=== PATIENT | male | born 1945 | race Caucasian/White ===

== ENCOUNTER 2017-04-30 20:29 | Emergency (ER) | payer MEDICARE, OTHER ==
[2017-04-30 20:37] VITALS: TEMP 97.1
[2017-04-30] MEDS ORDERED: ONDANSETRON ODT 4 MG TAB PO STA (21:43)
[2017-04-30] MEDS ORDERED: HYDROmorphone 2 MG/ML 1 ML SYRINGE IM STA (21:43)
[2017-04-30] MEDS: IBUPROFEN 800 MG TAB PO STA ×2 (21:52→22:08)
[2017-04-30] MEDS ORDERED: DIAZEPAM 5 MG/ML 2 ML SYRINGE IVP STA (21:53)
[2017-04-30] MEDS ORDERED: ONDANSETRON 4 MG/2 ML VIAL IVP STA (21:53)
[2017-04-30] MEDS ORDERED: HYDROmorphone 1 MG/ML 1 ML SYRINGE IVP STA (21:53)
[2017-04-30] MEDS ORDERED: KETOROLAC 30 MG/ML 1 ML VIAL IVP STA (21:53)
--- NOTE | 2017-04-30 22:05 | ED ---
General Adult HPI - General Chief complaint: Back Pain/Injury Stated complaint: back pain Time Seen by Provider: 04/30/17 21:15 Source: patient, family, RN notes reviewed, old records reviewed Mode of arrival: EMS Limitations: no limitations - History of Present Illness Initial comments: Is a 72-year-old male the ER for evaluation. Patient is here for evaluation of back pain. Worsening back pain for 2 days, patient was doing work in the yard and this did more stressful lifting and is normal than he normally does and that is used to. No pain down his leg no loss of bowel or bladder no neurological complaints. Patient states he takes Motrin at home for pain with no help. Patient does follow with pain management. - Related Data Home Medications Medication Instructions Recorded Confirmed Olmesartan [Benicar] 1 tab PO DAILY 07/11/16 07/11/16 metFORMIN HCL [metFORMIN HCL ER] 1 tab PO DAILY 07/11/16 07/11/16 Allergies Allergy/AdvReac Type Severity Reaction Status Date / Time Iodinated Contrast Media - Allergy Anaphylaxis Verified 04/30/17 20:37 Oral and [Iodinated Contrast Media - IV Dye] Review of Systems ROS Statement: Those systems with pertinent positive or pertinent negative responses have been documented in the HPI. ROS Other: All systems not noted in ROS Statement are negative. Past Medical History Past Medical History: Diabetes Mellitus, Hypertension History of Any Multi-Drug Resistant Organisms: None Reported Past Surgical History: Adenoidectomy, Orthopedic Surgery, Tonsillectomy Past Psychological History: No Psychological Hx Reported Smoking Status: Current every day smoker Past Alcohol Use History: None Reported Past Drug Use History: None Reported General Exam Limitations: no limitations General appearance: alert, in no apparent distress Head exam: Present: atraumatic, normocephalic, normal inspection Eye exam: Present: normal appearance, PERRL, EOMI. Absent: scleral icterus, conjunctival injection, periorbital swelling ENT exam: Present: normal exam, mucous membranes moist Neck exam: Present: normal inspection. Absent: tenderness, meningismus, lymphadenopathy Respiratory exam: Present: normal lung sounds bilaterally. Absent: respiratory distress, wheezes, rales, rhonchi, stridor Cardiovascular Exam: Present: regular rate, normal rhythm, normal heart sounds. Absent: systolic murmur, diastolic murmur, rubs, gallop, clicks GI/Abdominal exam: Present: soft, normal bowel sounds. Absent: distended, tenderness, guarding, rebound, rigid Extremities exam: Present: normal inspection, full ROM, normal capillary refill. Absent: tenderness, pedal edema, joint swelling, calf tenderness Back exam: Present: normal inspection Neurological exam: Present: alert, oriented X3, CN II-XII intact Psychiatric exam: Present: normal affect, normal mood Skin exam: Present: warm, dry, intact, normal color. Absent: rash Course Vital Signs 04/30/17 20:32 Temperature 97.1 F L Pulse Rate 91 Respiratory 144 H Rate O2 Sat by Pulse 94 L Oximetry - Reevaluation(s) Reevaluation #1: 04/30/17 22:04 At this point we patient does have adequate pain control Medical Decision Making - Medical Decision Making 72 male to ER for evaluation. Patient presents today for evaluation of back pain. No neurological issues. Patient has good pain control at this time. Can be discharged home Disposition Clinical Impression: Mechanical back pain, Strain of lumbar region Disposition: HOME SELF-CARE Condition: Good Instructions: Acute Low Back Pain (ED), Chronic Back Pain (ED) Referrals: Nilsa Crum MD [Primary Care Provider] - 1-2 days
[2017-04-30 22:42] VITALS: BP 131/62; PULSE 70; RESP 16
== END 2017-04-30 23:15 | disposition home or self-care (01) ==
LOC: EC 20:29
DX: S39.012A Strain of muscle, fascia and tendon of lower back, initial encounter (principal); E11.9 Type 2 diabetes mellitus without complications; I10 Essential (primary) hypertension; F17.200 Nicotine dependence, unspecified, uncomplicated; Z91.041 Radiographic dye allergy status; Z79.84 Long term (current) use of oral hypoglycemic drugs; Z79.899 Other long term (current) drug therapy; X50.0XXA Overexertion from strenuous movement or load, initial encounter; Y93.89 Activity, other specified; Y92.096 Garden or yard of other non-institutional residence as the place of occurrence of the external cause
CPT/HCPCS: 99284; 96374; 96375 ×2; J3360; J1885; J1170

== ENCOUNTER → 2017-08-15 | Outpatient (CLI) | payer MEDICARE, OTHER ==
--- NOTE | 2017-08-15 09:43 | CTL ---
EXAMINATION TYPE: CT Low Dose Lung DATE OF EXAM ORDERED: 08/15/2017 HISTORY: Tobacco abuse. Lung cancer screening CT DLP: [address] CTDI: 2.68 mGy Automated exposure control for dose reduction was used. SCREENING VISIT: COMPARISON: None TECHNIQUE: Low dose computed tomography scan was performed through the chest at 1 mm thick sections a nd reconstructed images in the coronal plane at [address] DIAGNOSTIC QUALITY: Satisfactory FINDINGS: LUNG NODULES: None. Right a nodule with a size of 5 mm is seen within the right lower lobe abutting the interlobar fissur e that could represent perifissural lymph node versus solid pulmonary nodule. Nodule Type: Solid on i mage # CT Image slide number 202. Right a nodule with a size of 4 mm is seen within the right upper lobe. Nodule Type: Solid on image # CT Image slide number 23 of series 3. Right a nodule with a size of 4 mm is seen within the right upper lobe. Nodule Type: Solid on image # CT Image slide number 12 of series 3. Left a nodule with a size of 4 mm is seen within the left upper lobe. Nodule Type: Solid on image # C T Image slide number 20 of series 3. LUNGS: COPD: Severity: None Fibrosis: Severity: None Lymph nodes: No adenopathy. Other findings: Wedge-shaped area of subsegmental atelectasis is seen within the right middle lobe on series 5 image 159. Linear area of pleural parenchymal scarring or subsegmental atelectasis is seen within the left lower lobe on series 3 image 42. RIGHT PLEURAL SPACE: Effusion: None Calcification: None Thickening: None Pneumothorax: None LEFT PLEURAL SPACE: Effusion: None Calcification: None Thickening: None Pneumothorax: None HEART: Heart Size: Nonenlarged, however there is dilation of the ascending thoracic aorta measuring 4.4 cm o n series 6 image 91. Coronary calcification: Minimal within the left main coronary artery. Pericardial effusion: None. OTHER FINDINGS: Upper abdomen: Artifact within the caudate lobe and left hepatic lobe. Bony thorax: Intact with minimal degenerative changes of the thoracic spine. Nonunited old fracture d eformity of the sternal body. Supraclavicular region: No adenopathy IMPRESSION: Bilateral solid nodules less than 6 mm that per the LUNG-RADS criteria have a very low li kelihood of becoming a clinically active cancer due to size. However surveillance is recommended. FOLLOW UP CT CHEST RECOMMENDATION: Continued annual screening low dose CT is recommended in [address] LUNG RAD: 2
== END | disposition home or self-care (01) ==
LOC: RADCTMAIN 08:36
PROVIDERS: ATTEND Internal Medicine
DX: Z12.2 Encounter for screening for malignant neoplasm of respiratory organs (principal); R91.8 Other nonspecific abnormal finding of lung field; F17.200 Nicotine dependence, unspecified, uncomplicated

== ENCOUNTER → 2017-08-17 | Outpatient (CLI) | payer MEDICARE, OTHER ==
--- NOTE | 2017-08-17 11:30 | US ---
EXAMINATION TYPE: US kidneys/renal and bladder DATE OF EXAM: 08/17/2017 COMPARISON: US 2016 CLINICAL HISTORY: N28.1 Kidney Cyst diabetic per patient EXAM MEASUREMENTS: Right Kidney: 11.5 x 7.5 x 5.2 cm Left Kidney: 10.9 x 5.8 x 5.4 cm Post Void Residual Volume: 40.8 mL Right Kidney: two simple cortical cysts noted: upper pole = 1.5 x 1.9 x 1.6cm and mid lower pole = 1. 6 x 1.9 x 1.7cm . The previously described mid to lower pole renal lesion that had demonstrated as in terval growth on the prior exam appears decreased in size, which may be attributable to technique. Ho wever there is no interval growth as on the prior exam this measured 2.5 cm and this lesion appears s imple on today's and examination with no internal septations or mural nodularity. Left Kidney: mid upper cortical cyst imaged =0.7 x 0.8 x 0.9cm Bladder: wnl Bilateral Jets seen: Yes Normal Post Void Residual: Yes Prominent prostate is noted posterior to bladder. IMPRESSION: 1. Benign-appearing right renal cysts with no interval growth. Subcentimeter left renal cyst. 2. Small postvoid residual within the urinary bladder 40.8 mL.
== END | disposition home or self-care (01) ==
LOC: RADUSWWP 08:58
PROVIDERS: ATTEND Urology
DX: N28.1 Cyst of kidney, acquired (principal); Z91.041 Radiographic dye allergy status
CPT/HCPCS: 76770

== ENCOUNTER 2018-02-06 09:12 | Day surgery (SDC) | payer MEDICARE, OTHER ==
[2018-02-03 08:44] VITALS: BMI 32.3
--- NOTE | 2018-02-06 06:27 | HP ---
HISTORY AND PHYSICAL CHIEF COMPLAINT: Fluid in the right ear. HISTORY OF PRESENT ILLNESS: This patient is a 72-year-old male who was recently seen in my office complaining of having a significant hearing loss in his right ear. The patient states that his symptoms have been present for the past several months. In addition, he feels that he also has a hearing loss from being exposed to noise in the past. At the time he was seen in my office, clinical examination of the ears revealed chronic right serous otitis media so-called glue ear. It was recommended that the patient undergo a right myringotomy with insertion of ventilation tubes under IV sedation. PAST MEDICAL HISTORY: Past medical history reveals that the patient has allergies to IODINE. MEDICATIONS: Current medications include metformin, Advil, and Flexeril. REVIEW OF SYSTEMS: Review of systems reveals cardiovascular system is negative. The metabolic endocrine system is positive for type 2 diabetes mellitus. Musculoskeletal system is positive for osteoarthritis. The remainder of review of systems is unremarkable. PHYSICAL EXAMINATION: The patient is a pleasant 72-year-old male who is alert and cooperative. HEENT EXAMINATION: Patient is normocephalic. Tympanic membranes are normal. Middle ear space on the left is free of any fluid or infection. Middle ear space on the right is dull with evidence of fluid in the right middle ear space. Pupils equal, round, and react to light and accommodation. Extraocular movements are within normal limits. Intranasal examination reveals severe septal deviation with compensatory hypertrophy of the inferior turbinates. Examination of oropharynx and the remainder of the head, neck exam including cranial nerves 2 through 12 are all within normal limits. CHEST/CARDIOVASCULAR: Both lung hudson are clear to percussion and auscultation. The patient is in regular sinus rhythm. S1 and S2 are present without any murmurs, S3s or S4s. Peripheral pulses are bilaterally symmetrical. ABDOMEN: There is no evidence the masses, megaly or tenderness. The abdomen is soft. Skin is unremarkable. Musculoskeletal and neurological are within normal limits. RECTAL EXAM: The rectal exam is deferred at this time because the patient has this done on a regular basis at his family physician's office. PREVIOUS SURGERIES: Previous surgeries include a vasectomy, tonsillectomy, adenoidectomy, and a hematoma which was removed from the patient's left knee. The remainder of physical exam is essentially unremarkable. IMPRESSION: Chronic right serous otitis media. PLAN: The patient is scheduled to undergo a right myringotomy with insertion of ventilation tubes under IV sedation with MAC in the a.m. ATTENTION RNS IN THE PRE-SURGICAL AREA: I have not ordered any medications or pre- surgical prophylactic antibiotics for this patient. If the pharmacy department sends any pre-surgical prophylactic antibiotics to the pre-surgical area for this patient, please cancel that order and return the medication to the pharmacy department. Also please make sure that the patient's account is credited appropriately. I have discussed the risks, benefits and alternative therapies for the above-mentioned procedure and for both sedation/analgesia as well as necessary blood product administration, if indicated, as they pertain to this patient. The patient has indicated his or her understanding and acceptance of the risks and procedures discussed. ROMULOL / IJN: [id number] /
[~2018-02-06 09:12] MED LIST: LACTATED RINGERS 1,000 ML IV SCH; MIDAZOLAM 2 MG/2 ML VIAL IV PRN; ONDANSETRON 4 MG/2 ML VIAL IVP ONE; Pre Op ABX Message 1 EACH MISC MISCELLANE ONE; fentaNYL (PF) 50 MCG/ML 2 ML AMP IV PRN
[2018-02-06 09:45] LABS: Glucose,Whole Blood 143 mg/dL (75-99)
[2018-02-06] MEDS ORDERED: OFLOXACIN 0.3% OTIC DROPS 5 ML BTL RIGHT EAR ONE ×2 (11:37→11:53)
[2018-02-06] MEDS ORDERED: PROPOFOL 10 MG/ML 20 ML VIAL IV ONE (11:39)
[2018-02-06] MEDS ORDERED: LIDOCAINE 1% INJ 10MG/ML (20 ML MDV) ONE (11:39)
[2018-02-06] MEDS ORDERED: fentaNYL (PF) 50 MCG/ML 2 ML AMP ONE (11:39)
[2018-02-06] MEDS ORDERED: LACTATED RINGERS 1,000 ML IV ONE (12:01)
[2018-02-06 12:22] VITALS: TEMP 97.5
[2018-02-06 12:26] LABS: Glucose,Whole Blood 115 mg/dL (75-99)
[2018-02-06 13:28] VITALS: PULSE 69
[2018-02-06 13:42] VITALS: BP 142/69; RESP 16
--- NOTE | 2018-02-06 20:48 | OP ---
OPERATIVE REPORT DATE OF SURGERY: 02/06/2018. PREOP DIAGNOSIS: Chronic right serous otitis media. POSTOPERATIVE DIAGNOSIS: Chronic right serous otitis media. ANESTHESIA: General anesthesia via LMA. OPERATIVE PROCEDURE: Right myringotomy with insertion of a Activent Joanna bobbin type ventilation tube. SURGEON: Dr. Smith. COMPLICATIONS: None. ESTIMATED BLOOD LOSS: Zero. PROCEDURE: The patient is placed on the operating table in supine position. After uneventful induction and LMA insertion, satisfactory sedation was obtained. Next the patient's right ear was draped in the usual and customary fashion. Following this, using the Zeiss operating microscope and a #3 aural speculum, the right external auditory canal was cleansed of all wax and debris. Next, inspection of the right tympanic membrane revealed that there were several calcified plaques (tympanosclerosis) noted in several portions of the tympanic membrane. Therefore, a portion of the tympanic membrane in the anterior inferior quadrant where there were no such plaques was elected to make the incision. The incision was made in the anterior inferior quadrant using a myringotomy knife. The fluid was suctioned from the right middle ear space, which appeared to be clear. Next, an Activent Joanna bobbin ventilation tube was inserted through the previously made myringotomy incision without any difficulty. At this point, the procedure was terminated. There were no intraoperative complications. Patient tolerated procedure well and was returned to the recovery room in satisfactory condition. MMODL / IJN: [id number] /
== END 2018-02-06 13:55 | disposition home or self-care (01) ==
LOC: OR 09:12
PROVIDERS: ATTEND Otolaryngology
DX: H65.21 Chronic serous otitis media, right ear (principal); H74.01 Tympanosclerosis, right ear; I10 Essential (primary) hypertension; E11.9 Type 2 diabetes mellitus without complications; F17.200 Nicotine dependence, unspecified, uncomplicated; Z79.1 Long term (current) use of non-steroidal anti-inflammatories (NSAID); Z79.84 Long term (current) use of oral hypoglycemic drugs; Z79.899 Other long term (current) drug therapy; Z91.041 Radiographic dye allergy status; Z98.52 Vasectomy status
CPT/HCPCS: 69436; J2405; J2001; J3010; J2704

== ENCOUNTER → 2018-08-15 | Outpatient (CLI) | payer MEDICARE, OTHER ==
--- NOTE | 2018-08-15 15:48 | US ---
EXAMINATION TYPE: US kidneys/renal and bladder DATE OF EXAM: 08/15/2018 COMPARISON: US, CT CLINICAL HISTORY: N28.1 Renal Cyst. Diabetic EXAM MEASUREMENTS: Right Kidney: 11.4 x 6.4 x 5.3 cm Left Kidney: 11.4 x 4.2 x 5.8 cm Post Void Residual Volume: 38.5 mL Right Kidney: multiple cysts noted with largest and simple appearing at mid lower cortex = 1.9 x 1.9 x 2.0cm Left Kidney: simple cortical cyst seen upper = 0.9 x 0.8 x 0.7cm; hyperechoic vessel alonso noted infe riorly Bladder: wnl; prominent prostate noted inferiorly Bilateral Jets seen: yes Normal Post Void Residual: yes There is no evidence for hydronephrosis at this point in time. No nephrolithiasis is seen. The urin francisca bladder is anechoic. Bilateral ureteral jets are seen. IMPRESSION: Bilateral cortical renal cysts as seen on the prior exam of 08/17/2017.
== END | disposition home or self-care (01) ==
LOC: RADUSWWP 14:46
PROVIDERS: ATTEND Urology
DX: N28.1 Cyst of kidney, acquired (principal)
CPT/HCPCS: 76770

== ENCOUNTER → 2023-05-18 | Outpatient (CLI) | payer MEDICARE, OTHER ==
--- NOTE | 2023-05-18 13:12 | CTL ---
EXAMINATION TYPE: CT Low Dose Lung DATE OF EXAM ORDERED: 05/18/2023 HISTORY: 78-year-old male Z12.2, personal history of tobacco use, current smoker with 80 pack-year hi story. Lung cancer screening CT DLP: [address] CTDI: 2.56 mGy Automated exposure control for dose reduction was used. SCREENING VISIT: Follow-up after last exam 6 years ago. COMPARISON: 08/15/2017 TECHNIQUE: Low dose computed tomography scan was performed through the chest with coronal and sagitta l reconstructions. CT DIAGNOSTIC QUALITY: Satisfactory FINDINGS: Heart is normal size without pericardial effusion. LCA and LAD coronary artery calcifications are pre sent. 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 Mild atherosclerotic arch calcifications with conventional arch vessel branching anatomy. No thoracic lymphadenopathy by CT size criteria. There is mild diffuse bronchial wall thickening. No consolidation or pleural effusion. 6 mm peripheral right basilar pulmonary nodule, axial image 216 unchanged. Minor fissure nodularity measuring up to 7 mm, axial image 158, unchanged. 4 mm anterior right upper lobe pulmonary nodule, axial image 121, unchanged. 3 mm right upper lobe pulmonary nodule, axial image 87 unchanged. 4 mm left upper lobe pulmonary nodule, axial image 54 unchanged. 3 mm anteromedial left upper lobe pulmonary nodule, axial image 127 not seen previously. 3 mm lingular pulmonary nodule left midlung, axial image 142, unchanged. 3 mm posterior left lower lobe pulmonary nodule, axial images 207, unchanged. 5 mm subpleural pulmonary nodule lateral left lower lobe, axial image 221 unchanged. There may be underlying mild fatty infiltration of the liver. Bones: No osseous destructive process. Normal variant sternal foramen. IMPRESSION: 1. Lung RADS Category 2 (benign appearance or behavior, <1% chance of malignancy). A number of 7 mm a nd smaller pulmonary nodules are unchanged compatible with a benign etiology. A new 3 mm left-sided p ulmonary nodule on annual follow-up would also be classified as benign. 2. Mild bronchial wall thickening suggests bronchitis or chronic asthma. Recommend smoking cessation. 3. 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 Follow-up as clinically indicated. CT LUNG RAD AND CT CHEST RECOMMENDATION: Lung-Rad 2 Benign Appearance or Behavior: Continue annual sc reening with LDCT in 12 months. S Modifier (other clinically significant findings): None
== END | disposition home or self-care (01) ==
LOC: RADCTMAIN 11:50
PROVIDERS: ATTEND Internal Medicine
DX: Z12.2 Encounter for screening for malignant neoplasm of respiratory organs (principal); F17.210 Nicotine dependence, cigarettes, uncomplicated; J98.09 Other diseases of bronchus, not elsewhere classified; I71.21 Aneurysm of the ascending aorta, without rupture; R91.8 Other nonspecific abnormal finding of lung field
CPT/HCPCS: 71271

== ENCOUNTER → 2023-05-31 | Outpatient (CLI) | payer MEDICARE, OTHER ==
--- NOTE | 2023-05-31 15:00 | US ---
EXAMINATION TYPE: US carotid duplex BILAT DATE OF EXAM: 05/31/2023 COMPARISON: NONE CLINICAL INDICATION: Male, 78 years old with history of I65.23 CAROTID STENOSIS,BILATERAL; Stenosis TECHNIQUE: Carotid duplex ultrasound examination. Indirect Doppler criteria was utilized. FINDINGS: EXAM MEASUREMENTS: RIGHT: Peak Systolic Velocity (PSV) cm/sec ----- Right CCA: 66.0 ----- Right ICA: 504 ----- Right ECA: 126 ICA/CCA ratio: 7.6 RIGHT: End Diastole cm/sec ----- Right CCA: 12.1 ----- Right ICA: 150 ----- Right ECA: 0.0 LEFT: Peak Systolic Velocity (PSV) cm/sec ----- Left CCA: 58.6 ----- Left ICA: 164 ----- Left ECA: 133 ICA/CCA ratio: 2.8 LEFT: End Diastole cm/sec ----- Left CCA: 8.2 ----- Left ICA: 38.8 ----- Left ECA: 5.1 VERTEBRALS (direction of flow): Right Vertebral: Antegrade Left Vertebral: Antegrade Rhythm: Normal PRODUCT DEVELOPMENT COORDINATOR NOTES: Heterogeneous plaque bilaterally with severely elevated velocities on right side Voicemail of results left at physician's office at time of exam IMPRESSION: 1. Measurements indicate hemodynamically significant severe, greater than 70% proximal right ICA sten osis. 2. Possible moderate (50-69%) proximal left ICA stenosis. Criteria for Assigning % of Stenosis / Diameter reduction (Estimation based on the indirect measurements of the internal carotid artery velocities (ICA PSV). 1. Normal (no stenosis)=ICA PSV < 125 cm/s: ratio < 2.0: ICA EDV<40 cm/s. 2. Less than 50% stenosis=ICA PSV < 125 cm/s: ratio < 2.0: ICA EDV<40 cm/s. 3. 50 to 69% stenosis=ICA PSV of 125 to 230 cm/s: ration 2.0 ? 4.0: ICA EDV 40-100 cm/s. 4. Greater than 70% stenosis to near occlusion= ICA PSV > 230 cm/s: ratio > 4.0: ICA EDV > 100 cm/s. 5. Near occlusion= ICA PSV velocities may be low or undetectable: variable ratio and ICA EDV. 6. Total occlusion=unable to detect flow.
== END | disposition home or self-care (01) ==
LOC: RADUSWWP 10:47
PROVIDERS: ATTEND Internal Medicine
DX: I65.23 Occlusion and stenosis of bilateral carotid arteries (principal)
CPT/HCPCS: 93880

== ENCOUNTER → 2023-09-02 | Outpatient (CLI) | payer MEDICARE, OTHER ==
--- NOTE | 2023-09-12 09:46 | MR ---
EXAMINATION TYPE: MR angio neck wo/w con DATE OF EXAM: 09/02/2023 COMPARISON: Ultrasound 8 1 HISTORY: Abnormal US, stenosis CONTRAST: Standard multiplanar, multisequence MRI departmental protocol images were obtained without contrast a nd with 8.5 mL intravenous Gadavist gadolinium contrast. FINDINGS: Exam is significantly limited due to motion artifact. Vertebral arteries are symmetric in size. Carotid bifurcations are patent. There are findings are lindsay picious for a high-grade proximal right ICA stenosis measuring greater than 70%. IMPRESSION: Limited exam due to severe motion artifact. Findings are suspicious for high grade proximal right int ernal carotid artery stenosis. Given limitations of exam recommended follow-up arteriogram or CTA for confirmation.
== END | disposition home or self-care (01) ==
LOC: RADMRIMAIN 09:35
PROVIDERS: ATTEND Internal Medicine
DX: I65.29 Occlusion and stenosis of unspecified carotid artery (principal); R93.89 Abnormal findings on diagnostic imaging of other specified body structures
CPT/HCPCS: 70549; A9585

== ENCOUNTER → 2024-05-23 | Outpatient (CLI) | payer MEDICARE, OTHER ==
--- NOTE | 2024-05-23 18:10 | CTL ---
EXAMINATION TYPE: CT Low Dose Lung DATE OF EXAM: 05/23/2024 3:24 PM CLINICAL INDICATION:Male, 79 years old with history of Z12.2,F17.210 NICOTINE DEPENDENCE; personal to bacco use , history of tobacco use. COMPARISON: None. TECHNIQUE: Multiple axial non-contrast scans were obtained from approximately the lung apices through the upper abdomen. Coronal and sagittal reformatted images were obtained. Low dose technique was uti lized. CT DLP: 88 mGycm, Automated exposure control for dose reduction was used. CT Contrast: Contrast used: None Oral contrast used: None FINDINGS: ======== Lack of intravenous contrast and low dose technique limits the evaluation of the vascular and soft ti ssue structures. Heart is normal size without pericardial effusion. LCA and LAD coronary artery calcifications are present.? ? 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 Mild atherosclerotic arch calcifications with conventional arch vessel branching anatomy.? ? No thoracic lymphadenopathy by CT size criteria.? ? There is mild diffuse bronchial wall thickening. No consolidation or pleural effusion.? ? 6 mm peripheral right basilar pulmonary nodule, series 4, image 202 is stable Minor fissure nodularity measuring up to 7 mm, series 4, image 154, unchanged 4 mm anterior right upper lobe pulmonary nodule, series 4, image 117, stable 3 mm right upper lobe pulmonary nodule, series 4, image 86, unchanged. 4 mm left upper lobe pulmonary nodule, series 4, image 86 is stable 3 mm anteromedial left upper lobe pulmonary nodule, series 4, image 129 is less conspicuous or perhap s smaller. 3 mm lingular pulmonary nodule left midlung, series 4, image 142 stable. 3 mm posterior left lower lobe pulmonary nodule, series 4, image 203, stable. 5 mm subpleural pulmonary nodule lateral left lower lobe, series 4, image 211 is stable. Bones: No osseous destructive process. Normal variant sternal foramen.? ? IMPRESSION:? ? 1. Lung RADS Category 2 (benign appearance or behavior, <1% chance of malignancy). A number of 7 mm a nd smaller pulmonary nodules are unchanged compatible with a benign etiology. A 3 mm left-sided pulm onary nodule on this follow-up exam can now be classified as benign.? ? 2. Recommend smoking cessation.? ? 3. 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 Follow-up as clinically indicated.? CT LUNG RAD AND CT CHEST RECOMMENDATION: Lung-Rad 2 Benign Appearance or Behavior: Continue annual sc reening with LDCT in 12 months. S Modifier (other clinically significant findings): S (emphysema and coronary artery disease) Recommend smoking cessation (if current smoker), or continuation of smoking cessation (if prior smoke r). Annual screening for lung cancer with low-dose computed tomography is recommended in adults ages 55 to 77 years who have a 30 pack-year smoking history and currently smoke or have quit within the pa st 15 years. Screening should be discontinued once a person has not smoked for 15 years or develops a health problem that substantially limits life expectancy or the ability or willingness to have curat sandrita lung surgery. Lung rads 2021 [email or web address]
== END | disposition home or self-care (01) ==
LOC: RADCTMAIN 12:55
PROVIDERS: ATTEND Internal Medicine
DX: Z12.2 Encounter for screening for malignant neoplasm of respiratory organs (principal); F17.210 Nicotine dependence, cigarettes, uncomplicated; I71.21 Aneurysm of the ascending aorta, without rupture; R91.8 Other nonspecific abnormal finding of lung field
CPT/HCPCS: 71271